=== PATIENT | female | born 1980 | race Caucasian/White ===

== ENCOUNTER → 2016-09-04 | Outpatient (CLI) | payer BC | LOC: MOB LAB 13:53 | PROVIDERS: ATTEND Nurse Practitioner Women's Health | DX: E03.9 Hypothyroidism, unspecified (principal) | CPT/HCPCS: 36415; 84439 ==

== ENCOUNTER → 2016-11-20 | Outpatient (CLI) | payer BC ==
[2016-11-20 14:53] LABS: BASOPHILS # (AUTO) 0.02 10*3/UL; BASOPHILS % (AUTO) 0.3 % (0-1); EOSINOPHILS # (AUTO) 0.07 10*3/UL; HEMATOCRIT 41.3 % (37.0-47.0); LYMPHOCYTES # (AUTO) 1.85 10*3/uL; MEAN CORPUSCULAR HEMOGLOBIN 29.4 PG (27-31); MEAN CORPUSCULAR HGB CONC 33.9 g/dL (33-37); MEAN CORPUSCULAR VOLUME 86.6 FL (81-99); MEAN PLATELET VOLUME 8.6 FL (7.4-12.2); MONOCYTES # (AUTO) 0.38 10*3/UL (0.3-0.8); MONOCYTES % (AUTO) 5.5 % (5-15); NEUTROPHILS # (AUTO) 4.63 10*3/UL; NEUTROPHILS % (AUTO) 66.5 % (50-80); RED BLOOD COUNT 4.77 10^6/uL (4.20-5.40)
[2016-11-20 15:03] LABS: PLATELET MORPHOLOGY COMMENT NORMAL MORPHOLOGY (NORM); RBC MORPHOLOGY COMMENT NORMAL MORPHOLOGY (NORM); WBC MORPHOLOGY COMMENT NORMAL MORPHOLOGY (NORM)
== END ==
LOC: LAB 14:41
PROVIDERS: ATTEND Physician Assistant Surgical
DX: G56.01 Carpal tunnel syndrome, right upper limb (principal); G57.62 Lesion of plantar nerve, left lower limb; M25.572 Pain in left ankle and joints of left foot; M25.571 Pain in right ankle and joints of right foot
CPT/HCPCS: 36415; 84550; 85025; 85652; 86038; 86140; 86200; 86431

== ENCOUNTER → 2016-12-31 | Outpatient (CLI) | payer BC ==
[2016-12-31 13:15] LABS: BASOPHILS # (AUTO) 0.03 10*3/UL; BASOPHILS % (AUTO) 0.4 % (0-1); EOSINOPHILS # (AUTO) 0.06 10*3/UL; EOSINOPHILS % (AUTO) 0.8 % (0-8); HEMATOCRIT 41.5 % (37.0-47.0); HEMOGLOBIN 13.9 g/dL (12.0-16.0); LYMPHOCYTES # (AUTO) 1.96 10*3/uL; MEAN CORPUSCULAR HEMOGLOBIN 29.4 PG (27-31); MEAN CORPUSCULAR HGB CONC 33.5 g/dL (33-37); MEAN CORPUSCULAR VOLUME 87.7 FL (81-99); MEAN PLATELET VOLUME 9.2 FL (7.4-12.2); MONOCYTES # (AUTO) 0.49 10*3/UL (0.3-0.8); MONOCYTES % (AUTO) 6.6 % (5-15); NEUTROPHILS # (AUTO) 4.89 10*3/UL; NEUTROPHILS % (AUTO) 65.5 % (50-80); RED BLOOD COUNT 4.73 10^6/uL (4.20-5.40)
[2016-12-31 14:00] LABS: PLATELET MORPHOLOGY COMMENT NORMAL MORPHOLOGY (NORM); RBC MORPHOLOGY COMMENT NORMAL MORPHOLOGY (NORM); WBC MORPHOLOGY COMMENT NORMAL MORPHOLOGY (NORM)
== END ==
LOC: LAB 12:57
PROVIDERS: ATTEND Internal Medicine Rheumatology
DX: M05.79 Rheumatoid arthritis with rheumatoid factor of multiple sites without organ or systems involvement (principal); Z79.899 Other long term (current) drug therapy
CPT/HCPCS: 36415; 82565; 84450; 84460; 85025